=== PATIENT | female | born 1980 | race Caucasian/White ===

== ENCOUNTER 2016-10-26 12:35 | Emergency (ER) | payer BC, OTHER ==
[~2016-10-26] VITALS: Ht 160 cm; Wt 76.3 kg
[~2016-10-26 12:35] MED LIST: ADVAIR 250/501 DISK IH; AMITRIPTYLINE H10 M1 PO; EFFEXOR100 MG PO; SINGULAIR10 MG PO; XANAX0.5 MG PO; ZYRTEC10 M3 PO; Zithromax PO; ZyrTEC PO; [UNRECOGNIZED DRUG - OTHER]
[2016-10-26 13:35] LABS: EOSINOPHIL (%) 2.3 % (0-5); EOSINOPHIL COUNT 0.2 K/uL (0-0.3); HEMATOCRIT 41.4 % (36.0-46.0); IMMATURE GRANULOCYTE (%) 0.3 % (0.0-0.7); INSTRUMENT ABS NEUTROPHIL CT 4.3 K/uL; LYMPHOCYTE COUNT 2.2 K/uL (1.0-2.8); MCH 27.9 PG (29.0-34.0); MCHC 32.9 G/DL (30.0-36.0); MCV 84.8 FL (83-99); MEAN PLAT.VOLUME 9.7 uM^3 (9.5-12.4); MONOCYTE (%) 5.3 % (3-12); MONOCYTE COUNT 0.4 K/uL (0-0.8); NEUTROPHIL COUNT 4.3 K/uL (1.8-6.4); PLATELET COUNT 416 K/uL (156-360); RBC DIS.WIDTH-CV 12.2 % (11.8-14.6); RBC DIS.WIDTH-SD 37.7 % (39-53); RED BLOOD COUNT 4.88 M/uL (3.80-5.20)
[2016-10-26 13:44] LABS: CHLORIDE 106 mEq/L (99-109); SODIUM 143 mEq/L (136-147)
[2016-10-26 13:46] LABS: GLUCOSE 88 mg/dL (70-99)
[2016-10-26 13:48] LABS: ANION GAP 14 MEQ/L (2-14); TOTAL BILIRUBIN 0.4 mg/dL (0.0-1.0)
[2016-10-26 13:50] LABS: ALKALINE PHOSPHATASE 74 IU/L (3-129); GFR ESTIMATE (CALCULATED) > 59 mL/min/
[2016-10-26 13:51] LABS: UREA NITROGEN (BUN) 12 mg/dL (9-23)
[2016-10-26 13:56] LABS: TROP-I INTERPRETATION NEGATIVE; TROPONIN-I < 0.01 ng/mL (0.0-0.30)
[2016-10-26 13:59] LABS: QUANTITATIVE HCG < 4.0 MIU/ML
[2016-10-26 14:11] LABS: ADD MIUA? NO; BILIRUBIN NEGATIVE; BLOOD NEGATIVE; COLOR STRAW ((YELLOW)); GLUCOSE (STRIP) NEGATIVE; KETONES NEGATIVE; LEUKOCYTES NEGATIVE; NITRITE NEGATIVE; PROTEIN (STRIP) NEGATIVE; SPECIFIC GRAVITY 1.005 (1.000-1.030); UCUL ADDED? NO; UROBILINOGEN 0.2 MG/DL (0.2-1.0)
[2016-10-26] MEDS ORDERED: ATARAX,VISTARIL50 MG PO (14:22)
[2016-10-26 15:14] VITALS: BP 112/76
== END 2016-10-26 15:14 | disposition home or self-care (01) ==
LOC: EME 12:35
PROVIDERS: Physician Assistant
DX: F41.0 Panic disorder [episodic paroxysmal anxiety] (principal); J45.909 Unspecified asthma, uncomplicated
CPT/HCPCS: 71020; 80053; 81003; 84484; 84702; 85025; 93005; 99281; 99284; J2060